=== PATIENT | male | born 1945 | race Caucasian/White ===

== ENCOUNTER 2017-01-07 17:37 | Emergency (ER) | payer MEDICARE, BC ==
[2017-01-07] MEDS ORDERED: Ondansetron 8 MG Tab.DIS PO ONE (17:59)
[2017-01-07] MEDS ORDERED: Aluminum Hydroxide/Magnesium Hydroxide Susp 30 ML Cup PO STA (17:59)
--- NOTE | 2017-01-07 18:04 | EDM.PDOC ---
<CuongGerardo wetzel - Last Filed: 01/07/17 21:15> ED HPI GENERAL MEDICAL PROBLEM - General Stated Complaint: ABD/CHEST PAIN Time Seen by Provider: 01/07/17 17:37 - Related Data Allergies Allergy/AdvReac Type Severity Reaction Status Date / Time No Known Allergies Allergy Verified 01/07/17 18:13 Home Meds: Home Meds . [Unable to Verify Home Med List] 01/07/17 [History] ED ROS GENERAL - Review of Systems Review Of Systems: See Below Constitutional: Reports: Decreased Appetite HEENT: Reports: No Symptoms Respiratory: Reports: No Symptoms Cardiovascular: Reports: No Symptoms Endocrine: Reports: No Symptoms GI/Abdominal: Reports: Abdominal Pain (In epigastrum), Nausea : Reports: No Symptoms Musculoskeletal: Reports: No Symptoms Skin: Reports: No Symptoms Neurological: Reports: No Symptoms Psychiatric: Reports: No Symptoms Hematologic/Lymphatic: Reports: No Symptoms Immunologic: Reports: No Symptoms ED EXAM, GI/ABD - Physical Exam Exam: See Below Exam Limited By: No Limitations General Appearance: Alert, WD/WN, No Apparent Distress Eyes: Bilateral: Normal Appearance, EOMI Ears: Normal External Exam Nose: Normal Inspection, Normal Mucosa, No Blood Throat/Mouth: Normal Inspection, Normal Lips, Normal Teeth, Normal Gums, Normal Oropharynx, Normal Voice, No Airway Compromise Head: Atraumatic, Normocephalic Neck: Normal Inspection, Supple, Non-Tender, Full Range of Motion Respiratory/Chest: No Respiratory Distress, Lungs Clear, Normal Breath Sounds, No Accessory Muscle Use, Chest Non-Tender Cardiovascular: Normal Peripheral Pulses, Regular Rate, Rhythm, No Edema, No Gallop, No JVD, No Murmur, No Rub GI/Abdominal Exam: Normal Bowel Sounds, Soft, Non-Tender, No Organomegaly, No Distention, No Abnormal Bruit, No Mass, Pelvis Stable Back Exam: Normal Inspection, Full Range of Motion, NT Extremities: Normal Inspection, Normal Range of Motion, Non-Tender, Normal Capillary Refill, No Pedal Edema Neurological: Alert, Oriented, CN II-XII Intact, Normal Cognition, Normal Gait, Normal Reflexes, No Motor/Sensory Deficits Psychiatric: Normal Affect, Normal Mood Skin Exam: Warm, Dry, Intact, Normal Color, No Rash Lymphatic: No Adenopathy EKG INTERPRETATION Rhythm: NSR [place]: Normal P-Wave: Present QRS: Normal ST-T: Normal Comparison: NA - No Prior EKG Course - Vital Signs Text/Narrative:: Uneventful ED course. He felt no pain and no symptoms after he had the GI cocktail. He felt much better and will go home with Meclizine 25 mg po tid prn vertigo and nausea. He will also take Omeprazole 20 mg po q day prn epigastric pain. Follow up with PCP next week if symptoms continue and may need ENT and audiology evaluation. Last Recorded V/S: Last Vital Signs Temp 35.6 C 01/07/17 18:19 Pulse 63 01/07/17 21:25 Resp 18 01/07/17 21:25 BP 144/72 H 01/07/17 21:25 Pulse Ox 99 01/07/17 21:25 - Orders/Labs/Meds Labs: Laboratory Tests 01/07/17 01/07/17 01/07/17 Range/Units 18:00 18:00 18:00 WBC 7.3 (4.5-12.0) X10-3/uL RBC 4.64 (4.30-5.75) x10(6)uL Hgb 14.0 (11.5-15.5) g/dL Hct 40.3 (30.0-51.3) % MCV 86.8 (80-96) fL MCH 30.1 (27.7-33.6) pg MCHC 34.7 (32.2-35.4) g/dL RDW 12.6 (11.5-15.5) % Plt Count 195 (125-369) X10(3)uL MPV 7.8 (7.4-10.4) fL Neut % (Auto) 69.8 (46-82) % Lymph % (Auto) 18.2 (13-37) % [place] % (Auto) 7.9 (4-12) % Eos % (Auto) 4 (1.0-5.0) % Baso % (Auto) 1 (0-2) % Neut # (Auto) 5.1 (1.6-8.3) # Lymph # (Auto) 1.3 (0.6-5.0) # [place] # (Auto) 0.6 (0.0-1.3) # Eos # (Auto) 0.3 (0.0-0.8) # Baso # (Auto) 0.0 (0.0-0.2) # PT 11.3 H (8.7-11.1) INR 1.12 (0.89-1.13) Sodium 136 (135-145) mmol/L Potassium 3.7 (3.5-5.3) mmol/L Chloride 99 L (100-110) mmol/L Carbon Dioxide 28 (23-29) mmol/L BUN 24 H (8-23) mg/dL Creatinine 1.0 (0.6-1.3) mg/dL Est Cr Clr Drug Dosing 75.44 mL/min Estimated GFR (MDRD) > 60 (>60) BUN/Creatinine Ratio 24.0 H (9-20) Glucose 168 H (80-116) mg/dL Calcium 9.0 (8.6-10.2) mg/dL Total Bilirubin 1.1 (0.1-1.3) mg/dL Direct Bilirubin 0.2 (0.1-0.2) mg/dL AST 23 (5-27) IU/L ALT 27 H (14-26) IU/L Alkaline Phosphatase 45 L (56-112) IU/L Troponin I (0.02-0.06) NG/ML Total Protein 7.5 (6.0-8.0) g/dL Albumin 4.2 (3.2-4.6) g/dL Amylase 50 (28-100) U/L 01/07/17 Range/Units 18:00 WBC (4.5-12.0) X10-3/uL RBC (4.30-5.75) x10(6)uL Hgb (11.5-15.5) g/dL Hct (30.0-51.3) % MCV (80-96) fL MCH (27.7-33.6) pg MCHC (32.2-35.4) g/dL RDW (11.5-15.5) % Plt Count (125-369) X10(3)uL MPV (7.4-10.4) fL Neut % (Auto) (46-82) % Lymph % (Auto) (13-37) % [place] % (Auto) (4-12) % Eos % (Auto) (1.0-5.0) % Baso % (Auto) (0-2) % Neut # (Auto) (1.6-8.3) # Lymph # (Auto) (0.6-5.0) # [place] # (Auto) (0.0-1.3) # Eos # (Auto) (0.0-0.8) # Baso # (Auto) (0.0-0.2) # PT (8.7-11.1) INR (0.89-1.13) Sodium (135-145) mmol/L Potassium (3.5-5.3) mmol/L Chloride (100-110) mmol/L Carbon Dioxide (23-29) mmol/L BUN (8-23) mg/dL Creatinine (0.6-1.3) mg/dL Est Cr Clr Drug Dosing mL/min Estimated GFR (MDRD) (>60) BUN/Creatinine Ratio (9-20) Glucose (80-116) mg/dL Calcium (8.6-10.2) mg/dL Total Bilirubin (0.1-1.3) mg/dL Direct Bilirubin (0.1-0.2) mg/dL AST (5-27) IU/L ALT (14-26) IU/L Alkaline Phosphatase (56-112) IU/L Troponin I < 0.01 L (0.02-0.06) NG/ML Total Protein (6.0-8.0) g/dL Albumin (3.2-4.6) g/dL Amylase (28-100) U/L Meds: Medications Discontinued Medications Generic Name Dose Route Start Last Admin Trade Name Freq PRN Reason Stop Dose Admin Al Hydroxide/Mg Hydroxide 30 ml 01/07/17 17:59 01/07/17 18:16 Mag-Al Susp PO 01/07/17 18:00 30 ml ONETIME STA Administration Meclizine HCl 200 mg 01/07/17 21:15 Antivert PO 01/07/17 21:16 .STK-MED ONE Ondansetron HCl 8 mg 01/07/17 17:59 01/07/17 18:14 Zofran Odt PO 01/07/17 18:00 8 mg ONETIME ONE Administration Departure - Departure Time of Disposition: 21:20 Disposition: Home, Self-Care 01 Condition: Good Clinical Impression: Benign paroxysmal positional vertigo, Esophagitis, Esophagitis, acute - Discharge Information Referrals: Jai Uribe MD [Primary Care Provider] - Forms: ED Department Discharge <Jarod Naylor - Last Filed: 01/09/17 20:11> ED HPI GENERAL MEDICAL PROBLEM - General Source of Information: Reports: Patient, Family History Limitations: Reports: No Limitations - History of Present Illness INITIAL COMMENTS - FREE TEXT/NARRATIVE: 71 y.o.w.m came to to the ed due to epigastric pain which started before dinner and did not subside after dinner. No0 N/V/D no C/P, Pt had a cardiac w/u in July 2016 including [employer] THERAPIST, echocardiogram, which were all neg. No other acute medical issues BP 169/76 pulse 58 Onset: Today Onset Date: 01/07/17 Onset Time: 15:00 Duration: Heavy Location: Reports: Abdomen Quality: Reports: Dull Severity: Mild Improves with: Reports: None Worsens with: Reports: None Associated Symptoms: Reports: No Other Symptoms Upper Abdomen Pain Score (Numeric/FACES): 4 ED ROS GENERAL - Review of Systems Review Of Systems: See Below Constitutional: Reports: No Symptoms HEENT: Reports: No Symptoms Respiratory: Reports: No Symptoms Cardiovascular: Reports: No Symptoms Endocrine: Reports: No Symptoms GI/Abdominal: Reports: Abdominal Pain : Reports: No Symptoms Musculoskeletal: Reports: No Symptoms Skin: Reports: No Symptoms Neurological: Reports: No Symptoms Psychiatric: Reports: No Symptoms Hematologic/Lymphatic: Reports: No Symptoms Immunologic: Reports: No Symptoms ED EXAM, GI/ABD - Physical Exam Exam: See Below Exam Limited By: No Limitations General Appearance: Alert, WD/WN, No Apparent Distress, Mild Distress Eyes: Bilateral: Normal Appearance Ears: Normal External Exam Nose: Normal Inspection Throat/Mouth: Normal Inspection Head: Atraumatic, Normocephalic Neck: Normal Inspection, Supple, Non-Tender, Full Range of Motion Respiratory/Chest: No Respiratory Distress, Lungs Clear, Normal Breath Sounds Cardiovascular: Normal Peripheral Pulses, Regular Rate, Rhythm, No Edema GI/Abdominal Exam: Tender (epigastric area, no pulsating mass) (Male) Exam: Deferred Rectal (Males) Exam: Deferred Back Exam: Normal Inspection Extremities: Normal Inspection Neurological: Alert, Oriented, CN II-XII Intact, Normal Cognition, Normal Gait Psychiatric: Normal Affect, Normal Mood Skin Exam: Warm, Dry, Intact, Normal Color Lymphatic: No Adenopathy EKG INTERPRETATION EKG Date: 01/07/17 Time: 17:45 Rhythm: NSR Rate (Beats/Min): 61 [place]: Normal P-Wave: Present QRS: Normal ST-T: Normal QT: Normal Comparison: NA - No Prior EKG Course - Vital Signs Text/Narrative:: 71 y.o.w.m came to to the ed due to epigastric pain which started before dinner and did not subside after dinner. No0 N/V/D no C/P, Pt had a cardiac w/u in July 2016 including SPORTS THERAPIST, echocardiogram, which were all neg. No other acute medical issues PE: Epigastric pain Labs results are pending Pt was signed out to Dr. Olvera at 7 pm due to shift changes, pending lab results Last Recorded V/S: Last Vital Signs Temp 35.6 C 01/07/17 18:19 Pulse 63 01/07/17 21:25 Resp 18 01/07/17 21:25 BP 144/72 H 01/07/17 21:25 Pulse Ox 99 01/07/17 21:25 - Orders/Labs/Meds Labs: Laboratory Tests 01/07/17 01/07/17 01/07/17 Range/Units 18:00 18:00 18:00 WBC 7.3 (4.5-12.0) X10-3/uL RBC 4.64 (4.30-5.75) x10(6)uL Hgb 14.0 (11.5-15.5) g/dL Hct 40.3 (30.0-51.3) % MCV 86.8 (80-96) fL MCH 30.1 (27.7-33.6) pg MCHC 34.7 (32.2-35.4) g/dL RDW 12.6 (11.5-15.5) % Plt Count 195 (125-369) X10(3)uL MPV 7.8 (7.4-10.4) fL Neut % (Auto) 69.8 (46-82) % Lymph % (Auto) 18.2 (13-37) % [place] % (Auto) 7.9 (4-12) % Eos % (Auto) 4 (1.0-5.0) % Baso % (Auto) 1 (0-2) % Neut # (Auto) 5.1 (1.6-8.3) # Lymph # (Auto) 1.3 (0.6-5.0) # [place] # (Auto) 0.6 (0.0-1.3) # Eos # (Auto) 0.3 (0.0-0.8) # Baso # (Auto) 0.0 (0.0-0.2) # PT 11.3 H (8.7-11.1) INR 1.12 (0.89-1.13) Sodium 136 (135-145) mmol/L Potassium 3.7 (3.5-5.3) mmol/L Chloride 99 L (100-110) mmol/L Carbon Dioxide 28 (23-29) mmol/L BUN 24 H (8-23) mg/dL Creatinine 1.0 (0.6-1.3) mg/dL Est Cr Clr Drug Dosing 75.44 mL/min Estimated GFR (MDRD) > 60 (>60) BUN/Creatinine Ratio 24.0 H (9-20) Glucose 168 H (80-116) mg/dL Calcium 9.0 (8.6-10.2) mg/dL Total Bilirubin 1.1 (0.1-1.3) mg/dL Direct Bilirubin 0.2 (0.1-0.2) mg/dL AST 23 (5-27) IU/L ALT 27 H (14-26) IU/L Alkaline Phosphatase 45 L (56-112) IU/L Troponin I (0.02-0.06) NG/ML Total Protein 7.5 (6.0-8.0) g/dL Albumin 4.2 (3.2-4.6) g/dL Amylase 50 (28-100) U/L 01/07/17 Range/Units 18:00 WBC (4.5-12.0) X10-3/uL RBC (4.30-5.75) x10(6)uL Hgb (11.5-15.5) g/dL Hct (30.0-51.3) % MCV (80-96) fL MCH (27.7-33.6) pg MCHC (32.2-35.4) g/dL RDW (11.5-15.5) % Plt Count (125-369) X10(3)uL MPV (7.4-10.4) fL Neut % (Auto) (46-82) % Lymph % (Auto) (13-37) % [place] % (Auto) (4-12) % Eos % (Auto) (1.0-5.0) % Baso % (Auto) (0-2) % Neut # (Auto) (1.6-8.3) # Lymph # (Auto) (0.6-5.0) # [place] # (Auto) (0.0-1.3) # Eos # (Auto) (0.0-0.8) # Baso # (Auto) (0.0-0.2) # PT (8.7-11.1) INR (0.89-1.13) Sodium (135-145) mmol/L Potassium (3.5-5.3) mmol/L Chloride (100-110) mmol/L Carbon Dioxide (23-29) mmol/L BUN (8-23) mg/dL Creatinine (0.6-1.3) mg/dL Est Cr Clr Drug Dosing mL/min Estimated GFR (MDRD) (>60) BUN/Creatinine Ratio (9-20) Glucose (80-116) mg/dL Calcium (8.6-10.2) mg/dL Total Bilirubin (0.1-1.3) mg/dL Direct Bilirubin (0.1-0.2) mg/dL AST (5-27) IU/L ALT (14-26) IU/L Alkaline Phosphatase (56-112) IU/L Troponin I < 0.01 L (0.02-0.06) NG/ML Total Protein (6.0-8.0) g/dL Albumin (3.2-4.6) g/dL Amylase (28-100) U/L
[2017-01-07] MEDS ORDERED: Meclizine 25 MG Tab PO ONE (21:15)
== END 2017-01-07 21:23 | disposition home or self-care (01) ==
LOC: FB.ED 17:37
DX: K20.9 Esophagitis, unspecified (principal); H81.10 Benign paroxysmal vertigo, unspecified ear
CPT/HCPCS: 36415; 80048; 80076; 82150; 84484; 85025; 85610; 93005; 99285; A9270; 99284

== ENCOUNTER 2021-08-08 08:53 | Day surgery (SDC) | payer MEDICARE, OTHER ==
[2021-08-08] MEDS ORDERED: Propofol 200 MG/20 ML SDV IV ONE (08:54)
[2021-08-08] MEDS ORDERED: Lactated Ringers 1,000 ML IV SCH (09:00)
[2021-08-08] MEDS ORDERED: Sodium Chloride 0.9% 10 ML Syringe FLUSH PRN (09:00)
[2021-08-08] MEDS ORDERED: Simethicone Drops 40 MG/0.6 ML 30 ML Bottle ONE (10:20)
== END 2021-08-08 11:15 | disposition home or self-care (01) ==
LOC: FB.SDS 08:53
PROVIDERS: ATTEND Surgery
DX: D12.0 Benign neoplasm of cecum (principal); K57.30 Diverticulosis of large intestine without perforation or abscess without bleeding; G47.33 Obstructive sleep apnea (adult) (pediatric); I10 Essential (primary) hypertension; E11.9 Type 2 diabetes mellitus without complications; Z79.84 Long term (current) use of oral hypoglycemic drugs; Z79.899 Other long term (current) drug therapy
CPT/HCPCS: 00811-QZ; 88305; A9270-GY; J2704; J7120

== ENCOUNTER → 2024-07-19 | Day surgery (SDC) | payer MEDICARE ==
[~2024-07-19] MED LIST: Lidocaine 2% 100 MG/5 ML Syringe IVPUSH ONE; Propofol 200 MG/20 ML SDV IV ONE; Sodium Chloride 0.9% 10 ML Syringe FLUSH PRN
[2024-07-19] MEDS: Lactated Ringers 1,000 ML IV SCH (09:10)
[2024-07-19] MEDS: Simethicone Drops 40 MG/0.6 ML 30 ML Bottle ONE (10:08)
== END | disposition home or self-care (01) ==
LOC: FB.SDS 08:20
PROVIDERS: ATTEND Surgery
DX: K29.50 Unspecified chronic gastritis without bleeding (principal); K29.80 Duodenitis without bleeding; K31.A0 Gastric intestinal metaplasia, unspecified; K20.90 Esophagitis, unspecified without bleeding; K44.9 Diaphragmatic hernia without obstruction or gangrene; E11.9 Type 2 diabetes mellitus without complications; Z79.84 Long term (current) use of oral hypoglycemic drugs; Z79.82 Long term (current) use of aspirin; Z79.899 Other long term (current) drug therapy
CPT/HCPCS: 88305; 88342; A9270-GY; J2704; J7120